=== PATIENT | female | born 1980 | race Caucasian/White ===

== ENCOUNTER 2020-02-26 14:44 | Emergency (ER) | payer BC ==
[2020-02-26] MEDS ORDERED: predniSONE 20 MG TAB ONE (15:10)
== END 2020-02-26 15:15 | disposition home or self-care (01) ==
LOC: NAV ERS 14:44
DX: L50.9 Urticaria, unspecified (principal); F43.10 Post-traumatic stress disorder, unspecified; Z87.891 Personal history of nicotine dependence; Z79.899 Other long term (current) drug therapy
CPT/HCPCS: 99282; J7512